=== PATIENT | female | born 1975 | race Two or more races ===

== ENCOUNTER → 2024-02-18 08:25 | Outpatient (CLI) | payer OTHER | END | disposition home or self-care (01) | LOC: LAB 08:25 | DX: D64.9 Anemia, unspecified (principal); R10.9 Unspecified abdominal pain; N39.0 Urinary tract infection, site not specified; R94.6 Abnormal results of thyroid function studies; E78.2 Mixed hyperlipidemia ==

== ENCOUNTER 2024-02-18 09:04 | Outpatient (CLI) | payer OTHER | END 2024-02-18 09:07 | disposition home or self-care (01) | LOC: SONOGRAMA 09:04 | DX: E04.2 Nontoxic multinodular goiter (principal) ==

== ENCOUNTER → 2024-03-01 09:56 | Outpatient (CLI) | payer OTHER ==
[2024-03-01 10:16] LABS: URINE APPEARANCE Clear; URINE BILIRRUBIN Negative (NEGATIVE); URINE BLOOD Negative; URINE COLOR Yellow; URINE GLUCOSE Negative (NEGATIVE); URINE KETONE Negative (NEGATIVE); URINE LEUKOCYTE Trace; URINE NITRATE Negative; URINE PROTEIN Negative (NEGATIVE); URINE UROBILINOGEN 0.2 E.U./dl
[2024-03-01 10:19] LABS: HEMATOCRIT 38.9 % (36.0-45.00); HEMOGLOBIN 13.1 g/dL (12.0-15.00); MEAN CELL VOLUME 86.4 fL (80.00-100.00); MEAN CORPUSCULAR HEMOGLOBIN 29.2 pg (27.00-32.0); MEAN CORPUSCULAR HGB CONC 33.8 g/dl (32.0-36.0); PLATELET COUNT 305 K/uL (150-450); RED CELL DISTRIBUTION WIDTH 14.2 % (11.5-14.5); URINE BACTERIA 1091.7 uL (0.0-1933); URINE EPITHELIAL CELLS 18.5 uL (0.0-38.8); URINE RBC 21.5 uL (0.0-20.8); URINE WBC 23.2 uL (0.0-23.2)
[2024-03-01 11:04] LABS: ALBUMIN 3.4 gm/dL (3.4-5.0); BILIRUBIN TOTAL 0.7 mg/dL (0.3-1.2); BILIRUBIN,CONJUGATED 0.15 mg/dL (0.0-0.2); BILIRUBIN,UNCONJUGATED 0.55 mg/dL (0.0-0.6); CALCIUM 9.9 mg/dL (8.5-10.1); CHOL HDL RATIO 3.4 (0-5.0); CREATININE SERUM 0.65 mg/dL (0.55-1.02); GFR 96.88; PHOSPHOROUS 3.6 mg/dL (2.5-4.9); POTASSIUM 3.92 mEq/L (3.5-5.1); T4 FREE 1.3 NG/ML (0.76-1.46); TOTAL PROTEIN 7.3 gm/dL (6.4-8.2); TSH 2.59 uIU/mL (0.358-3.74)
[2024-03-01 11:43] LABS: URINE CAST 0.29 uL (0.0-1.40)
== END | disposition home or self-care (01) ==
LOC: LAB 09:56
DX: D64.9 Anemia, unspecified (principal); R10.9 Unspecified abdominal pain; K76.0 Fatty (change of) liver, not elsewhere classified; E78.2 Mixed hyperlipidemia; N39.0 Urinary tract infection, site not specified; E55.9 Vitamin D deficiency, unspecified; E53.8 Deficiency of other specified B group vitamins; R94.6 Abnormal results of thyroid function studies

== ENCOUNTER → 2024-04-10 | Outpatient (CLI) | payer OTHER ==
[2024-04-10 09:17] LABS: ALBUMIN 3.5 gm/dL (3.4-5.0); CALCIUM 10.1 mg/dL (8.5-10.1); CREATININE SERUM 0.73 mg/dL (0.55-1.02); GFR 84.73; PHOSPHOROUS 3.9 mg/dL (2.5-4.9); POTASSIUM 4.41 mEq/L (3.5-5.1)
== END | disposition home or self-care (01) ==
LOC: LAB 08:02
DX: R59.0 Localized enlarged lymph nodes (principal); R22.1 Localized swelling, mass and lump, neck

== ENCOUNTER 2024-05-10 07:48 | Outpatient (CLI) | payer OTHER | END 2024-05-10 08:00 | disposition home or self-care (01) | LOC: TOM 07:48 | PROVIDERS: ATTEND Otolaryngology Otolaryngology/Facial Plastic Surgery | DX: R59.0 Localized enlarged lymph nodes (principal); R22.1 Localized swelling, mass and lump, neck ==

== ENCOUNTER 2024-05-13 10:21 | Outpatient (CLI) | payer OTHER | END 2024-05-13 10:23 | disposition home or self-care (01) | LOC: SONOGRAMA 10:21 | PROVIDERS: ATTEND Pathology Anatomic Pathology & Clinical Pathology | DX: R59.0 Localized enlarged lymph nodes (principal); R22.1 Localized swelling, mass and lump, neck ==

== ENCOUNTER 2024-10-23 08:16 | Outpatient (CLI) | payer OTHER ==
[2024-10-23 10:29] LABS: BUN CREA RATIO 24.0 (7.0-25.0); CHOL HDL RATIO 3.1 (0-5.0); CREATININE SERUM 0.55 mg/dL (0.55-1.02); GFR 117.48; GLUCOSE FASTING 76.0 mg/dL (65-100); HDL 40.0 mg/dl (40-60); LDL 72.0 mg/dl (0-130); OSMOLALITY SERUM 284.0 MOSM/KG (275-295); T4 FREE 1.39 NG/ML (0.76-1.46); TSH 2.55 uIU/mL (0.358-3.74); VLDL 13.0 (0-39)
== END 2024-10-23 08:20 | disposition home or self-care (01) ==
LOC: LAB 08:16
DX: E78.2 Mixed hyperlipidemia (principal); R10.2 Pelvic and perineal pain; E53.8 Deficiency of other specified B group vitamins; R94.6 Abnormal results of thyroid function studies; M32.9 Systemic lupus erythematosus, unspecified; M05.9 Rheumatoid arthritis with rheumatoid factor, unspecified